=== PATIENT | male | born 1970 | race Caucasian/White ===

== ENCOUNTER 2020-02-12 10:57 | Inpatient (IN) ==
[2020-02-12] MEDS ORDERED: BISACODYL 5 MG TABLET PO PRN (12:55)
[2020-02-12] MEDS ORDERED: MAGNESIUM SULF RIDER 2 GM in PREMIX 1 EACH IV PRN (12:55)
[2020-02-12] MEDS ORDERED: LACTULOSE 20 GM/30 ML UDCUP PO PRN (12:55)
[2020-02-12] MEDS ORDERED: hydrALAZINE 20 MG/1 ML VIAL IV PRN (12:55)
[2020-02-12] MEDS ORDERED: diphenhydrAMINE CAP 25 MG CAPSULE PO PRN (12:55)
[2020-02-12] MEDS ORDERED: MAGNESIUM SULF RIDER 4 GM in PREMIX 1 EACH IV PRN (12:55)
[2020-02-12] MEDS ORDERED: ZALEPLON 5 MG CAPSULE PO PRN (12:55)
[2020-02-12] MEDS ORDERED: SIMETHICONE CHEW 125 MG TABLET PO PRN (12:55)
[2020-02-12] MEDS ORDERED: NICOTINE 21 MG/24 HR PATCH TRANSDERM PRN (12:55)
[2020-02-12] MEDS ORDERED: CALCIUM CARBONATE CHEW 500 MG TABLET PO PRN (12:55)
[2020-02-12] MEDS ORDERED: ONDANSETRON 4 MG/2 ML VIAL IV PRN (12:55)
[2020-02-12] MEDS ORDERED: ALUMINUM/MAGNES/SIMETH MAX STR 30 ML UDCUP PO PRN (12:55)
[2020-02-12] MEDS ORDERED: guaiFENesin/DM ER 600-30 MG TABLET PO PRN (12:55)
[2020-02-12] MEDS ORDERED: NITROGLYCERIN SL 0.4 MG TABLET SL PRN (13:00)
[2020-02-12] MEDS ORDERED: DEXTROSE 10% 250 ML BAG IV PRN (14:19)
[2020-02-12] MEDS ORDERED: GLUCAGON 1 MG VIAL IM PRN ×2 (14:19→17:48)
[2020-02-12] MEDS ORDERED: ENOXAPARIN 40 MG/0.4 ML SYRINGE SUBCUT SCH (14:30)
[2020-02-12] MEDS ORDERED: LIDOCAINE DRIP 2,000 MG/250 ML PREMIX IV SCH (14:30)
[2020-02-12] MEDS ORDERED: FUROSEMIDE 40 MG/4 ML VIAL IV ONE (17:45)
[2020-02-12] MEDS ORDERED: ALPRAZolam 0.5 MG TABLET PO PRN (17:46)
[2020-02-12] MEDS ORDERED: DEXTROSE 50% 25 GM/50 ML VIAL IV PRN (17:48)
[2020-02-12 18:06] LABS: Basophils # 0.1 10*3/uL (0.0-0.2); Basophils % 0.5 % (0.0-0.8); Eosinophils % 0.1 % (0.00-10.9); Hematocrit 41.6 VOL% (35.7-47.0); Hemoglobin 13.3 GM/DL (12.0-16.0); Immature Granulocytes % 0.4 %; Immature Granulocytes Absolute 0.05 #; Lymphocytes # 1.5 10*3/uL (1.4-4.0); Lymphocytes % 12.4 % (21.3-54.2); Mean Platelet Volume 10.8 FL (9.6-12.0); Monocytes % 10.5 % (1.7-12.7); Neutrophils % 76.1 % (38.7-73.9); Platelet Count 211 T/CUMM (130-400); Red Blood Count 4.38 MC/CUMM (3.8-5.5); Red Cell Distribution Width 13.7 % (9.3-17.3); White Blood Count 12.4 T/CUMM (4-12)
[2020-02-12 18:18] LABS: Albumin 3.4 G/DL (3.4-5.0); Bilirubin,Total 0.6 MG/DL (0.2-1.0); Calcium 8.5 MG/DL (8.5-10.1); Osmolality,Calculated 278.2 MOS/KG (273-304); Total Protein 7.6 G/DL (6.4-8.3)
[2020-02-12 18:34] LABS: Apearance,Urine CLEAR (Clear); Bacteria,Urine Occasional /HPF (Few); Bilirubin,Urine Negative (Negative); Blood, Urine Negative (Negative); Glucose,Urine (UA) Negative (Negative); Hyaline Casts,Urine 3 /LPF (0-3); Ketones,Urine Negative (Negative); Mucus,Urine Occasional /LPF (Occasional); Nitrite,Urine Negative (Negative); Protein,Urine Negative; RBC,Urine 2 /HPF (0-4); Squamous Epithelial Cell,Urine Occasional /HPF (0-10); Urine Color Yellow (Yellow); Urine Urobilinogen < 2.0 EU/DL (0.2-1.0); WBC,Urine 1 /HPF (0-6)
[2020-02-12] MEDS ORDERED: tiZANidine 4 MG TABLET PO PRN (21:32)
[2020-02-12] MEDS: AMIODARONE INJ 450 MG in DEXTROSE 5% 241 ML IV SCH (22:00)
[2020-02-12 22:05] LABS: Barbiturates Screen,Urine Negative (Negative); Benzodiazepines Screen,Urine Negative (Negative); Cannabinoid Screen,Urine Negative (Negative); Opiate Screen,Urine Positive (Negative); Phencyclidine Screen,Urine Negative (Negative)
[2020-02-12] MEDS: INSULIN REGULAR 100 UNIT/ML SUBCUT SCH (22:31)
[2020-02-12] MEDS: ASCORBIC ACID 500 MG TABLET PO SCH (22:32)
[2020-02-12] MEDS: ENOXAPARIN 150 MG/ML SYRINGE SUBCUT SCH (22:32)
[2020-02-12] MEDS: MORPHINE ER 15 MG TABLET PO SCH (22:34)
[2020-02-12] MEDS: traMADol 50 MG TABLET PO SCH (22:34)
[2020-02-12] MEDS: SACUBITRIL/VALSARTAN 49-51 MG TABLET PO SCH (22:34)
[2020-02-12] MEDS: SIMVASTATIN 10 MG TABLET PO SCH (22:35)
[2020-02-13 03:30] LABS: Basophils # 0.1 10*3/uL (0.0-0.2); Basophils % 0.5 % (0.0-0.8); Eosinophils % 0.1 % (0.00-10.9); Hemoglobin 13.5 GM/DL (14.0-18.0); Immature Granulocytes % 0.3 %; Immature Granulocytes Absolute 0.04 #; Lymphocytes # 1.8 10*3/uL (1.4-4.0); Lymphocytes % 15.1 % (21.2-54.2); Mean Corpuscular HGB Conc 32.1 GM/DL (32-36); Mean Corpuscular Volume 96.1 FL (87-102); Mean Platelet Volume 10.6 FL (9.6-12.0); Monocytes % 10.4 % (1.7-12.7); Neutrophils % 73.6 % (38.7-73.9); Platelet Count 184 T/CUMM (130-400); Red Blood Count 4.37 MC/CUMM (3.8-5.5); Red Cell Distribution Width 13.7 % (9.3-17.3); White Blood Count 12.2 T/CUMM (4-12)
[2020-02-13 04:04] LABS: Bilirubin,Total 0.5 MG/DL (0.2-1.0); Calcium 8.1 MG/DL (8.5-10.1); Osmolality,Calculated 277.2 MOS/KG (273-304); Risk Ratio 4.49; Thyroid Stimulating Hormone 1.99 uIU/ml (0.358-3.74); Total Protein 7.7 G/DL (6.4-8.3); VLDL CHOLESTEROL 21.2 MG/DL
[2020-02-13] MEDS: ENOXAPARIN 150 MG/ML SYRINGE SUBCUT SCH ×2 (06:11→21:30)
[2020-02-13] MEDS: traMADol 50 MG TABLET PO SCH ×3 (06:11→23:21)
[2020-02-13] MEDS: AMIODARONE INJ 450 MG in DEXTROSE 5% 241 ML IV SCH ×3 (06:11→19:10)
[2020-02-13] MEDS ORDERED: MAGNESIUM OXIDE 400 MG TABLET PO SCH (09:00)
[2020-02-13] MEDS ORDERED: PANTOPRAZOLE 40 MG TABLET PO SCH (09:00)
[2020-02-13] MEDS: LEVOTHYROXINE 150 MCG TABLET PO SCH (10:00)
[2020-02-13] MEDS: ASPIRIN EC 81 MG TABLET PO SCH (10:00)
[2020-02-13] MEDS: SACUBITRIL/VALSARTAN 49-51 MG TABLET PO SCH ×2 (10:00→21:30)
[2020-02-13] MEDS: ISOSORBIDE MONONITRATE 30 MG TABLET PO SCH (10:00)
[2020-02-13] MEDS: DIGOXIN 0.25 MG TABLET PO SCH (10:00)
[2020-02-13] MEDS: DOCUSATE SODIUM 100 MG CAPSULE PO SCH (10:00)
[2020-02-13] MEDS: carvediloL 25 MG TABLET PO SCH ×2 (10:00→21:30)
[2020-02-13] MEDS: hydrALAZINE 10 MG TABLET PO SCH ×3 (10:00→23:20)
[2020-02-13] MEDS: MAGNESIUM OXIDE 400 MG TABLET PO SCH ×2 (10:00→21:30)
[2020-02-13] MEDS: PARoxetine 20 MG TABLET PO SCH (10:00)
[2020-02-13] MEDS: ASCORBIC ACID 500 MG TABLET PO SCH ×2 (10:00→21:30)
[2020-02-13] MEDS: MORPHINE ER 15 MG TABLET PO SCH ×2 (10:00→23:21)
[2020-02-13] MEDS: MORPHINE 4 MG/1 ML VIAL IV PRN ×2 (10:25→10:26)
[2020-02-13] MEDS ORDERED: MAGNESIUM SULF RIDER 2 GM in PREMIX 1 EACH IV ONE (10:35)
[2020-02-13] MEDS: VANCOMYCIN INJ 2,000 MG in SODIUM CHLORIDE 0.9% 500 ML IV SCH (11:00)
[2020-02-13] MEDS: LIDOCAINE DRIP 2,000 MG/250 ML PREMIX IV SCH ×2 (11:15→19:40)
[2020-02-13] MEDS ORDERED: METOPROLOL TARTRATE 5 MG/5 ML VIAL IV ONE ×2 (11:28→11:30)
[2020-02-13] MEDS ORDERED: AMIODARONE 150 MG/3 ML VIAL ONE (11:28)
[2020-02-13] MEDS ORDERED: AMIODARONE INJ 150 MG in DEXTROSE 5% 100 ML IV ONE (11:30)
[2020-02-13] MEDS ORDERED: DIAZEPAM 5 MG TABLET PO ONE (11:53)
[2020-02-13] MEDS ORDERED: diphenhydrAMINE CAP 25 MG CAPSULE PO ONE (11:53)
[2020-02-13] MEDS ORDERED: LIDOCAINE 1% 20 ML VIAL ONE (11:59)
[2020-02-13] MEDS ORDERED: HEPARIN/NACL 0.9% 2 UNITS/ML 1,500 ML IV ONE (11:59)
[2020-02-13] MEDS: POTASSIUM CHLORIDE RIDER 10 MEQ in PREMIX 1 EACH IV SCH ×4 (12:00→15:00)
[2020-02-13] MEDS: SODIUM CHLORIDE 0.9% 1,000 ML IV SCH ×2 (12:00→20:00)
[2020-02-13] MEDS: cefTRIAXone 1,000 MG in SYRINGE 1 EACH IV SCH (12:00)
[2020-02-13] MEDS ORDERED: SUCCINYLCHOLINE 200 MG/10 ML VIAL ONE (13:02)
[2020-02-13] MEDS ORDERED: MIDAZOLAM 2 MG/2 ML VIAL ONE (13:02)
[2020-02-13] MEDS ORDERED: ETOMIDATE 20 MG/10 ML VIAL IV ONE (13:05)
[2020-02-13 16:55] LABS: ABG Base Excess -2.1 MMOL/L (-2.5-2.5); ABG HCO3 22.7 MMOL/L (20-26); ABG Oxygen Saturation 98.2 % (95-100); ABG PCO2 41.7 MM HG (35-48); ABG PH 7.356 (7.35-7.45); ABG TCO2 20.5 MMOL/L (23-27); Allen Test Positive; Pt O2 Delivery Device Ventilator
[2020-02-13] MEDS: FUROSEMIDE 40 MG/4 ML VIAL IV SCH ×2 (21:23)
[2020-02-13] MEDS: MEXILETINE 150 MG CAPSULE PO SCH ×2 (21:28→23:21)
[2020-02-13] MEDS: INSULIN REGULAR 100 UNIT/ML SUBCUT SCH ×3 (21:28→23:22)
[2020-02-13] MEDS: SIMVASTATIN 10 MG TABLET PO SCH (21:30)
[2020-02-14] MEDS: AMIODARONE INJ 450 MG in DEXTROSE 5% 241 ML IV SCH ×3 (03:54→20:28)
[2020-02-14] MEDS: LIDOCAINE DRIP 2,000 MG/250 ML PREMIX IV SCH ×2 (04:00→15:18)
[2020-02-14 05:58] LABS: Basophils % 0.4 % (0.0-0.8); Eosinophils # 0.1 10*3/uL (0.0-0.87); Eosinophils % 0.9 % (0.00-10.9); Hematocrit 35.6 VOL% (42.0-52.0); Hemoglobin 12.1 GM/DL (14.0-18.0); Immature Granulocytes % 0.4 %; Immature Granulocytes Absolute 0.04 #; Lymphocytes # 1.8 10*3/uL (1.4-4.0); Lymphocytes % 16.8 % (21.2-54.2); Mean Corpuscular Volume 95.4 FL (87-102); Mean Platelet Volume 11.5 FL (9.6-12.0); Monocytes % 14.7 % (1.7-12.7); Neutrophils % 66.8 % (38.7-73.9); Platelet Count 173 T/CUMM (130-400); Red Blood Count 3.73 MC/CUMM (3.8-5.5); Red Cell Distribution Width 14.1 % (9.3-17.3); White Blood Count 10.8 T/CUMM (4-12)
[2020-02-14] MEDS: ENOXAPARIN 150 MG/ML SYRINGE SUBCUT SCH ×2 (06:13→17:17)
[2020-02-14] MEDS: traMADol 50 MG TABLET PO SCH (06:14)
[2020-02-14] MEDS: MEXILETINE 150 MG CAPSULE PO SCH (06:14)
[2020-02-14] MEDS: INSULIN REGULAR 100 UNIT/ML SUBCUT SCH ×3 (06:47→17:58)
[2020-02-14] MEDS: LEVOTHYROXINE 150 MCG TABLET PO SCH (06:47)
[2020-02-14 07:25] LABS: Calcium 6.5 MG/DL (8.5-10.1); Osmolality,Calculated 267.1 MOS/KG (273-304)
[2020-02-14 08:05] LABS: ABG Base Excess -3.6 MMOL/L (-2.5-2.5); ABG HCO3 21.1 MMOL/L (20-26); ABG Oxygen Saturation 96.4 % (95-100); ABG PCO2 37.1 MM HG (35-48); ABG PH 7.373 (7.35-7.45); ABG PO2 86.9 MM HG (80-95); ABG TCO2 22.3 MMOL/L (23-27)
[2020-02-14] MEDS: PARoxetine 20 MG TABLET PO SCH (11:00)
[2020-02-14] MEDS: FUROSEMIDE 40 MG/4 ML VIAL IV SCH ×2 (11:00→16:40)
[2020-02-14] MEDS: VANCOMYCIN INJ 2,000 MG in SODIUM CHLORIDE 0.9% 500 ML IV SCH (11:00)
[2020-02-14] MEDS: ASPIRIN EC 81 MG TABLET PO SCH (11:00)
[2020-02-14] MEDS: ASCORBIC ACID 500 MG TABLET PO SCH ×2 (11:00→21:30)
[2020-02-14] MEDS: MAGNESIUM OXIDE 400 MG TABLET PO SCH ×2 (11:00→21:30)
[2020-02-14] MEDS: cefTRIAXone 1,000 MG in SYRINGE 1 EACH IV SCH (11:00)
[2020-02-14] MEDS: PANTOPRAZOLE 40 MG VIAL IV SCH (11:00)
[2020-02-14] MEDS: carvediloL 25 MG TABLET PO SCH ×2 (11:00→16:40)
[2020-02-14] MEDS: DIGOXIN 0.25 MG TABLET PO SCH (11:00)
[2020-02-14] MEDS: SACUBITRIL/VALSARTAN 49-51 MG TABLET PO SCH ×2 (11:00→21:30)
[2020-02-14] MEDS: DOCUSATE SODIUM 100 MG CAPSULE PO SCH (15:15)
[2020-02-14] MEDS: ISOSORBIDE MONONITRATE 30 MG TABLET PO SCH (15:21)
[2020-02-14] MEDS: SIMVASTATIN 10 MG TABLET PO SCH (21:30)
[2020-02-14] MEDS: ISOSORBIDE DINITRATE 10 MG TABLET PO SCH (21:30)
[2020-02-15] MEDS: INSULIN REGULAR 100 UNIT/ML SUBCUT SCH ×4 (01:39→17:54)
[2020-02-15] MEDS: AMIODARONE INJ 450 MG in DEXTROSE 5% 241 ML IV SCH ×3 (03:14→18:30)
[2020-02-15 04:39] LABS: Basophils % 0.4 % (0.0-0.8); Eosinophils # 0.2 10*3/uL (0.0-0.87); Eosinophils % 2.2 % (0.00-10.9); Hematocrit 39.5 VOL% (42.0-52.0); Hemoglobin 12.4 GM/DL (14.0-18.0); Immature Granulocytes % 0.4 %; Immature Granulocytes Absolute 0.04 #; Lymphocytes # 2.1 10*3/uL (1.4-4.0); Lymphocytes % 20.8 % (21.2-54.2); Mean Corpuscular HGB Conc 31.4 GM/DL (32-36); Mean Corpuscular Volume 96.3 FL (87-102); Mean Platelet Volume 11.1 FL (9.6-12.0); Monocytes % 11.1 % (1.7-12.7); Neutrophils % 65.1 % (38.7-73.9); Platelet Count 206 T/CUMM (130-400)
[2020-02-15 04:48] LABS: Calcium 8.3 MG/DL (8.5-10.1); Osmolality,Calculated 288.5 MOS/KG (273-304)
[2020-02-15] MEDS: ENOXAPARIN 150 MG/ML SYRINGE SUBCUT SCH ×2 (06:19→17:57)
[2020-02-15 08:07] LABS: ABG HCO3 23.4 MMOL/L (20-26); ABG Oxygen Saturation 97.8 % (95-100); ABG PCO2 41.9 MM HG (35-48); ABG PH 7.364 (7.35-7.45); ABG PO2 107.6 MM HG (80-95); ABG TCO2 24.6 MMOL/L (23-27)
[2020-02-15] MEDS: DIGOXIN 0.25 MG TABLET PO SCH (08:18)
[2020-02-15] MEDS: ISOSORBIDE DINITRATE 10 MG TABLET PO SCH ×2 (08:21→20:33)
[2020-02-15] MEDS: PARoxetine 20 MG TABLET PO SCH (08:22)
[2020-02-15] MEDS: ASPIRIN EC 81 MG TABLET PO SCH (08:25)
[2020-02-15] MEDS: FUROSEMIDE 40 MG/4 ML VIAL IV SCH ×2 (08:26→15:59)
[2020-02-15] MEDS: PANTOPRAZOLE 40 MG VIAL IV SCH (08:27)
[2020-02-15] MEDS: MAGNESIUM OXIDE 400 MG TABLET PO SCH ×2 (08:27→20:33)
[2020-02-15] MEDS: SACUBITRIL/VALSARTAN 49-51 MG TABLET PO SCH ×2 (08:27→20:33)
[2020-02-15] MEDS: carvediloL 25 MG TABLET PO SCH ×2 (08:27→17:58)
[2020-02-15] MEDS: DOCUSATE SODIUM 100 MG CAPSULE PO SCH (08:27)
[2020-02-15] MEDS: ASCORBIC ACID 500 MG TABLET PO SCH ×2 (08:27→20:33)
[2020-02-15] MEDS: POTASSIUM CHLORIDE 20 MEQ TABLET PO PRN ×2 (08:30→20:33)
[2020-02-15] MEDS: LEVOTHYROXINE 150 MCG TABLET PO SCH (08:54)
[2020-02-15] MEDS: cefTRIAXone 1,000 MG in SYRINGE 1 EACH IV SCH (09:55)
[2020-02-15] MEDS: VANCOMYCIN INJ 2,000 MG in SODIUM CHLORIDE 0.9% 500 ML IV SCH (11:01)
[2020-02-15] MEDS: LIDOCAINE DRIP 2,000 MG/250 ML PREMIX IV SCH (11:48)
[2020-02-15] MEDS: SIMVASTATIN 10 MG TABLET PO SCH (20:33)
[2020-02-15] MEDS: ACETAMINOPHEN 325 MG TABLET PO PRN (20:34)
[2020-02-16] MEDS: INSULIN REGULAR 100 UNIT/ML SUBCUT SCH ×4 (00:46→17:51)
[2020-02-16] MEDS: MORPHINE 4 MG/1 ML VIAL IV PRN ×2 (03:40→09:12)
[2020-02-16 03:49] LABS: Calcium 8.7 MG/DL (8.5-10.1); Osmolality,Calculated 289.8 MOS/KG (273-304)
[2020-02-16 03:58] LABS: Basophils # 0.1 10*3/uL (0.0-0.2); Basophils % 0.4 % (0.0-0.8); Eosinophils # 0.1 10*3/uL (0.0-0.87); Eosinophils % 0.7 % (0.00-10.9); Hematocrit 39.9 VOL% (42.0-52.0); Hemoglobin 12.8 GM/DL (14.0-18.0); Immature Granulocytes % 0.5 %; Immature Granulocytes Absolute 0.09 #; Lymphocytes # 2.2 10*3/uL (1.4-4.0); Lymphocytes % 12.8 % (21.2-54.2); Mean Corpuscular HGB Conc 32.1 GM/DL (32-36); Mean Corpuscular Volume 95.5 FL (87-102); Mean Platelet Volume 11.1 FL (9.6-12.0); Neutrophils % 76.6 % (38.7-73.9); Platelet Count 244 T/CUMM (130-400); Red Blood Count 4.18 MC/CUMM (3.8-5.5); Red Cell Distribution Width 13.8 % (9.3-17.3); White Blood Count 17.4 T/CUMM (4-12)
[2020-02-16] MEDS: AMIODARONE INJ 450 MG in DEXTROSE 5% 241 ML IV SCH ×2 (04:20→17:28)
[2020-02-16] MEDS: POTASSIUM CHLORIDE 20 MEQ TABLET PO PRN ×2 (05:17→05:55)
[2020-02-16 05:26] LABS: ABG Base Excess -0.8 MMOL/L (-2.5-2.5); ABG HCO3 23.7 MMOL/L (20-26); ABG Oxygen Saturation 97.4 % (95-100); ABG PCO2 41.6 MM HG (35-48); ABG PH 7.376 (7.35-7.45); ABG PO2 95.5 MM HG (80-95); ABG TCO2 21.3 MMOL/L (23-27); Allen Test Positive; Pt O2 Delivery Device Ventilator
[2020-02-16] MEDS: ENOXAPARIN 150 MG/ML SYRINGE SUBCUT SCH ×2 (07:35→18:03)
[2020-02-16] MEDS: ASCORBIC ACID 500 MG TABLET PO SCH ×2 (08:12→21:28)
[2020-02-16] MEDS: ISOSORBIDE DINITRATE 10 MG TABLET PO SCH ×2 (08:12→21:28)
[2020-02-16] MEDS: ASPIRIN EC 81 MG TABLET PO SCH (08:12)
[2020-02-16] MEDS: DIGOXIN 0.25 MG TABLET PO SCH (08:13)
[2020-02-16] MEDS: SACUBITRIL/VALSARTAN 49-51 MG TABLET PO SCH (08:13)
[2020-02-16] MEDS: carvediloL 25 MG TABLET PO SCH ×2 (08:13→17:27)
[2020-02-16] MEDS: PANTOPRAZOLE 40 MG VIAL IV SCH (08:13)
[2020-02-16] MEDS: MAGNESIUM OXIDE 400 MG TABLET PO SCH ×2 (08:13→21:28)
[2020-02-16] MEDS: PARoxetine 20 MG TABLET PO SCH (08:13)
[2020-02-16] MEDS: FUROSEMIDE 40 MG/4 ML VIAL IV SCH ×2 (08:13→16:28)
[2020-02-16] MEDS: LEVOTHYROXINE 150 MCG TABLET PO SCH (08:14)
[2020-02-16] MEDS: DOCUSATE SODIUM 100 MG CAPSULE PO SCH (08:14)
[2020-02-16] MEDS: ACETAMINOPHEN 325 MG TABLET PO PRN (10:00)
[2020-02-16] MEDS: cefTRIAXone 1,000 MG in SYRINGE 1 EACH IV SCH (10:15)
[2020-02-16] MEDS: LIDOCAINE DRIP 2,000 MG/250 ML PREMIX IV SCH (11:41)
[2020-02-16] MEDS: VANCOMYCIN INJ 2,000 MG in SODIUM CHLORIDE 0.9% 500 ML IV SCH ×2 (11:41→23:23)
[2020-02-16] MEDS: fentaNYL INJ 1,250 MCG in SODIUM CHLORIDE 0.9% 225 ML IV PRN (11:43)
[2020-02-16] MEDS: SIMVASTATIN 10 MG TABLET PO SCH (21:28)
[2020-02-17] MEDS: fentaNYL INJ 1,250 MCG in SODIUM CHLORIDE 0.9% 225 ML IV PRN (02:20)
[2020-02-17 04:37] LABS: ABG Base Excess -2.8 MMOL/L (-2.5-2.5); ABG HCO3 23.3 MMOL/L (20-26); ABG Oxygen Saturation 95.8 % (95-100); ABG PCO2 45.4 MM HG (35-48); ABG PH 7.328 (7.35-7.45); ABG PO2 86.8 MM HG (80-95); ABG TCO2 24.7 MMOL/L (23-27); Allen Test Positive; Pt O2 Delivery Device Ventilator
[2020-02-17 05:06] LABS: Basophils # 0.1 10*3/uL (0.0-0.2); Basophils % 0.4 % (0.0-0.8); Eosinophils # 0.5 10*3/uL (0.0-0.87); Eosinophils % 3.3 % (0.00-10.9); Hematocrit 38.7 VOL% (42.0-52.0); Hemoglobin 12.2 GM/DL (14.0-18.0); Immature Granulocytes % 0.4 %; Immature Granulocytes Absolute 0.06 #; Lymphocytes # 2.6 10*3/uL (1.4-4.0); Lymphocytes % 18.3 % (21.2-54.2); Mean Corpuscular HGB Conc 31.5 GM/DL (32-36); Mean Corpuscular Volume 95.8 FL (87-102); Mean Platelet Volume 11.2 FL (9.6-12.0); Monocytes % 9.9 % (1.7-12.7); Neutrophils % 67.7 % (38.7-73.9); Platelet Count 232 T/CUMM (130-400); Red Blood Count 4.04 MC/CUMM (3.8-5.5); Red Cell Distribution Width 14.2 % (9.3-17.3)
[2020-02-17 05:11] LABS: Calcium 8.7 MG/DL (8.5-10.1); Osmolality,Calculated 295.8 MOS/KG (273-304)
[2020-02-17 05:20] LABS: Risk Ratio 6.77; VLDL CHOLESTEROL 45.2 MG/DL
[2020-02-17] MEDS: ENOXAPARIN 150 MG/ML SYRINGE SUBCUT SCH (06:49)
[2020-02-17] MEDS: INSULIN REGULAR 100 UNIT/ML SUBCUT SCH ×4 (07:03→19:00)
[2020-02-17] MEDS ORDERED: HEPARIN/NACL 0.9% 2 UNITS/ML 500 ML IV ONE ×3 (08:07→08:36)
[2020-02-17] MEDS ORDERED: HEPARIN/NACL 0.9% 2 UNITS/ML 1,000 ML IV ONE (08:18)
[2020-02-17] MEDS ORDERED: LIDOCAINE 1% 20 ML VIAL ONE (08:34)
[2020-02-17] MEDS ORDERED: HEPARIN 5,000 UNIT/1 ML VIAL ONE ×6 (09:57→12:32)
[2020-02-17 12:26] LABS: ABG Base Excess -5.9 MMOL/L (-2.5-2.5); ABG HCO3 18.5 MMOL/L (20-26); ABG Oxygen Saturation 98.6 % (95-100); ABG PCO2 33.1 MM HG (35-48); ABG PH 7.366 (7.35-7.45); ABG PO2 152.3 MM HG (80-95); ABG TCO2 19.6 MMOL/L (23-27); Glucose Heart Surgery 107 MG/DL (74-106); Hemoglobin Heart Surgery 11.8 G/DL (14.0-18.0); Potassium Heart/CVR 3.9 MMOL/L (3.5-5.1)
[2020-02-17] MEDS ORDERED: PHENYLEPHRINE DRIP 20 MG/250 ML PREMIX IV ONE (12:45)
[2020-02-17] MEDS ORDERED: ROCURONIUM 100 MG/10 ML VIAL IV ONE (12:46)
[2020-02-17] MEDS ORDERED: MIDAZOLAM 2 MG/2 ML VIAL ONE (12:46)
[2020-02-17] MEDS ORDERED: HEPARIN 10,000 UNIT/10 ML VIAL ONE (12:46)
[2020-02-17] MEDS ORDERED: SODIUM CHLORIDE 0.9% 1,000 ML IV ONE (12:46)
[2020-02-17] MEDS ORDERED: VECURONIUM 10 MG VIAL IV ONE (13:49)
[2020-02-17] MEDS ORDERED: SEVOFLURANE 1 UNIT/15 MINUTE INH ONE (13:49)
[2020-02-17] MEDS ORDERED: PROTAMINE SULFATE 50 MG/5 ML VIAL IV ONE (13:49)
[2020-02-17] MEDS: carvediloL 25 MG TABLET PO SCH ×2 (15:30→20:10)
[2020-02-17] MEDS: LEVOTHYROXINE 150 MCG TABLET PO SCH (15:30)
[2020-02-17] MEDS: DOCUSATE SODIUM 100 MG CAPSULE PO SCH (15:30)
[2020-02-17] MEDS: ASPIRIN EC 81 MG TABLET PO SCH (15:30)
[2020-02-17] MEDS: ISOSORBIDE DINITRATE 10 MG TABLET PO SCH ×2 (15:31→22:16)
[2020-02-17] MEDS: PANTOPRAZOLE 40 MG VIAL IV SCH (15:31)
[2020-02-17] MEDS: ASCORBIC ACID 500 MG TABLET PO SCH ×2 (15:31→22:16)
[2020-02-17] MEDS: PARoxetine 20 MG TABLET PO SCH (15:31)
[2020-02-17] MEDS: MAGNESIUM OXIDE 400 MG TABLET PO SCH ×2 (15:31→22:16)
[2020-02-17] MEDS ORDERED: PHENYLEPHRINE DRIP 40 MG/250 ML PREMIX IV ONE (17:03)
[2020-02-17] MEDS: PHENYLEPHRINE DRIP 40 MG/250 ML PREMIX IV PRN ×4 (17:15→23:16)
[2020-02-17 17:55] LABS: ABG Base Excess -13.8 MMOL/L (-2.5-2.5); ABG HCO3 13.8 MMOL/L (20-26); ABG Oxygen Saturation 87.1 % (95-100); ABG PO2 87.9 MM HG (80-95); ABG TCO2 29.7 MMOL/L (23-27)
[2020-02-17 18:05] LABS: ABG PH 6.831 (7.35-7.45)
[2020-02-17 18:58] LABS: ABG Base Excess -9.5 MMOL/L (-2.5-2.5); ABG HCO3 16.9 MMOL/L (20-26); ABG Oxygen Saturation 97.5 % (95-100); ABG TCO2 21.7 MMOL/L (23-27); Glucose Heart Surgery 236 MG/DL (74-106); Hematocrit Heart Surgery 40.1 PERCENT (42-52)
[2020-02-17 19:04] LABS: ABG PCO2 79.4 MM HG (35-48); ABG PH 7.075 (7.35-7.45); Potassium Heart/CVR 6.5 MMOL/L (3.5-5.1)
[2020-02-17] MEDS ORDERED: SODIUM POLYSTYRENE SULFATE 15 GM/60 ML BOTTLE PO STA (19:20)
[2020-02-17] MEDS: cefTRIAXone 1,000 MG in SYRINGE 1 EACH IV SCH (20:00)
[2020-02-17] MEDS: LIDOCAINE DRIP 2,000 MG/250 ML PREMIX IV SCH (20:09)
[2020-02-17] MEDS: SIMVASTATIN 10 MG TABLET PO SCH (22:16)
[2020-02-18] MEDS: PHENYLEPHRINE DRIP 40 MG/250 ML PREMIX IV PRN ×2 (01:41→05:15)
[2020-02-18] MEDS: INSULIN REGULAR 100 UNIT/ML SUBCUT SCH ×4 (02:17→18:07)
[2020-02-18] MEDS: fentaNYL INJ 1,250 MCG in SODIUM CHLORIDE 0.9% 225 ML IV PRN ×2 (02:56→20:30)
[2020-02-18] MEDS: ENOXAPARIN 150 MG/ML SYRINGE SUBCUT SCH ×2 (02:57→06:43)
[2020-02-18 03:53] LABS: ABG Base Excess -7.4 MMOL/L (-2.5-2.5); ABG HCO3 18.6 MMOL/L (20-26); ABG Oxygen Saturation 99.5 % (95-100); ABG PCO2 39.2 MM HG (35-48); ABG PH 7.293 (7.35-7.45); ABG PO2 384.1 MM HG (80-95); ABG TCO2 19.8 MMOL/L (23-27)
[2020-02-18 04:05] LABS: Basophils % 0.2 % (0.0-0.8); Hematocrit 39.6 VOL% (42.0-52.0); Hemoglobin 11.9 GM/DL (14.0-18.0); Immature Granulocytes % 1.2 %; Lymphocytes # 1.9 10*3/uL (1.4-4.0); Lymphocytes % 10.9 % (21.2-54.2); Mean Corpuscular HGB Conc 30.1 GM/DL (32-36); Mean Corpuscular Volume 100.3 FL (87-102); Mean Platelet Volume 10.8 FL (9.6-12.0); Monocytes % 9.2 % (1.7-12.7); Neutrophils % 78.5 % (38.7-73.9); Platelet Count 283 T/CUMM (130-400); Red Blood Count 3.95 MC/CUMM (3.8-5.5); Red Cell Distribution Width 14.5 % (9.3-17.3); White Blood Count 16.9 T/CUMM (4-12)
[2020-02-18 04:25] LABS: Calcium 7.5 MG/DL (8.5-10.1); Osmolality,Calculated 316.7 MOS/KG (273-304)
[2020-02-18] MEDS: DOCUSATE SODIUM 100 MG CAPSULE PO SCH (08:18)
[2020-02-18] MEDS: LEVOTHYROXINE 150 MCG TABLET PO SCH (08:37)
[2020-02-18] MEDS: ASPIRIN EC 81 MG TABLET PO SCH (08:38)
[2020-02-18] MEDS: ASCORBIC ACID 500 MG TABLET PO SCH ×2 (08:38→22:00)
[2020-02-18] MEDS: carvediloL 25 MG TABLET PO SCH ×2 (08:38→17:23)
[2020-02-18] MEDS: PANTOPRAZOLE 40 MG VIAL IV SCH (08:38)
[2020-02-18] MEDS: ISOSORBIDE DINITRATE 10 MG TABLET PO SCH ×2 (08:38→22:00)
[2020-02-18] MEDS: cefTRIAXone 1,000 MG in SYRINGE 1 EACH IV SCH (10:15)
[2020-02-18] MEDS: LIDOCAINE DRIP 2,000 MG/250 ML PREMIX IV SCH (10:24)
[2020-02-18] MEDS: VANCOMYCIN INJ 2,000 MG in SODIUM CHLORIDE 0.9% 500 ML IV SCH (16:47)
[2020-02-18] MEDS: ACETAMINOPHEN 325 MG TABLET PO PRN ×2 (17:24→22:13)
[2020-02-18] MEDS: SIMVASTATIN 10 MG TABLET PO SCH (22:00)
[2020-02-19] MEDS: INSULIN REGULAR 100 UNIT/ML SUBCUT SCH ×4 (00:22→17:05)
[2020-02-19] MEDS: ACETAMINOPHEN 325 MG TABLET PO PRN ×2 (01:47→20:24)
[2020-02-19 03:52] LABS: ABG Base Excess -4.5 MMOL/L (-2.5-2.5); ABG HCO3 20.7 MMOL/L (20-26); ABG Oxygen Saturation 98.9 % (95-100); ABG PCO2 39.3 MM HG (35-48); ABG PH 7.336 (7.35-7.45)
[2020-02-19 03:56] LABS: Basophils % 0.4 % (0.0-0.8); Hematocrit 34.7 VOL% (42.0-52.0); Hemoglobin 10.6 GM/DL (14.0-18.0); Immature Granulocytes % 0.7 %; Immature Granulocytes Absolute 0.08 #; Lymphocytes # 1.8 10*3/uL (1.4-4.0); Lymphocytes % 15.6 % (21.2-54.2); Mean Corpuscular HGB Conc 30.5 GM/DL (32-36); Mean Corpuscular Volume 98.9 FL (87-102); Mean Platelet Volume 10.7 FL (9.6-12.0); Neutrophils % 68.3 % (38.7-73.9); Platelet Count 269 T/CUMM (130-400); Red Blood Count 3.51 MC/CUMM (3.8-5.5); Red Cell Distribution Width 14.6 % (9.3-17.3); White Blood Count 11.3 T/CUMM (4-12)
[2020-02-19] MEDS: VANCOMYCIN INJ 2,000 MG in SODIUM CHLORIDE 0.9% 500 ML IV SCH (06:50)
[2020-02-19] MEDS: ENOXAPARIN 150 MG/ML SYRINGE SUBCUT SCH (07:01)
[2020-02-19] MEDS: METOCLOPRAMIDE 10 MG/2 ML VIAL IV SCH ×3 (07:02→17:12)
[2020-02-19] MEDS: ISOSORBIDE DINITRATE 10 MG TABLET PO SCH ×2 (08:50→20:23)
[2020-02-19] MEDS: LEVOTHYROXINE 150 MCG TABLET PO SCH (08:53)
[2020-02-19] MEDS: carvediloL 25 MG TABLET PO SCH ×2 (08:53→17:12)
[2020-02-19] MEDS: DOCUSATE SODIUM 100 MG CAPSULE PO SCH (08:53)
[2020-02-19] MEDS: ASPIRIN CHEW 81 MG TABLET PO SCH (08:54)
[2020-02-19] MEDS: ASCORBIC ACID 500 MG TABLET PO SCH ×2 (08:54→20:23)
[2020-02-19] MEDS: hydrALAZINE 10 MG TABLET PO SCH (08:54)
[2020-02-19] MEDS: PANTOPRAZOLE 40 MG VIAL IV SCH (08:55)
[2020-02-19] MEDS: cefTRIAXone 1,000 MG in SYRINGE 1 EACH IV SCH (09:05)
[2020-02-19] MEDS: LIDOCAINE DRIP 2,000 MG/250 ML PREMIX IV SCH (11:31)
[2020-02-19] MEDS: hydrALAZINE 25 MG TABLET PO SCH ×2 (14:55→20:23)
[2020-02-19] MEDS ORDERED: METOCLOPRAMIDE 10 MG/2 ML VIAL IV SCH (20:00)
[2020-02-19] MEDS: SIMVASTATIN 10 MG TABLET PO SCH (20:23)
[2020-02-19 22:33] LABS: Albumin 2.5 G/DL (3.4-5.0); Bilirubin,Direct 0.48 MG/DL (0.0-0.20); Bilirubin,Indirect 0.4 MG/DL (0.0-1.0); Bilirubin,Total 0.9 MG/DL (0.2-1.0); Calcium 8.3 MG/DL (8.5-10.1); Osmolality,Calculated 343.7 MOS/KG (273-304); Total Protein 6.8 G/DL (6.4-8.3)
[2020-02-20] MEDS: INSULIN REGULAR 100 UNIT/ML SUBCUT SCH ×5 (00:18→22:36)
[2020-02-20] MEDS: METOCLOPRAMIDE 10 MG/2 ML VIAL IV SCH ×2 (00:19→06:15)
[2020-02-20 05:07] LABS: Basophils # 0.1 10*3/uL (0.0-0.2); Basophils % 0.4 % (0.0-0.8); Hematocrit 36.6 VOL% (42.0-52.0); Hemoglobin 11.2 GM/DL (14.0-18.0); Immature Granulocytes % 0.5 %; Immature Granulocytes Absolute 0.06 #; Lymphocytes # 2.3 10*3/uL (1.4-4.0); Lymphocytes % 19.9 % (21.2-54.2); Mean Corpuscular HGB Conc 30.6 GM/DL (32-36); Mean Corpuscular Volume 98.7 FL (87-102); Mean Platelet Volume 11.1 FL (9.6-12.0); Monocytes % 14.7 % (1.7-12.7); Neutrophils % 64.5 % (38.7-73.9); Platelet Count 291 T/CUMM (130-400); Red Blood Count 3.71 MC/CUMM (3.8-5.5); Red Cell Distribution Width 14.6 % (9.3-17.3); White Blood Count 11.4 T/CUMM (4-12)
[2020-02-20 05:31] LABS: Calcium 8.9 MG/DL (8.5-10.1); Osmolality,Calculated 342.7 MOS/KG (273-304)
[2020-02-20 05:34] LABS: Albumin 2.6 G/DL (3.4-5.0); Bilirubin,Direct 0.48 MG/DL (0.0-0.20); Bilirubin,Indirect 1.6 MG/DL (0.0-1.0); Bilirubin,Total 2.1 MG/DL (0.2-1.0)
[2020-02-20] MEDS: ENOXAPARIN 150 MG/ML SYRINGE SUBCUT SCH (06:14)
[2020-02-20] MEDS: ASCORBIC ACID 500 MG TABLET PO SCH ×2 (08:16→22:36)
[2020-02-20] MEDS: carvediloL 25 MG TABLET PO SCH ×2 (08:16→18:27)
[2020-02-20] MEDS: LEVOTHYROXINE 150 MCG TABLET PO SCH (08:16)
[2020-02-20] MEDS: ASPIRIN CHEW 81 MG TABLET PO SCH (08:16)
[2020-02-20] MEDS: ISOSORBIDE DINITRATE 10 MG TABLET PO SCH ×2 (08:16→22:36)
[2020-02-20] MEDS: DOCUSATE SODIUM 100 MG CAPSULE PO SCH (08:16)
[2020-02-20] MEDS: PANTOPRAZOLE 40 MG VIAL IV SCH (08:17)
[2020-02-20] MEDS: hydrALAZINE 25 MG TABLET PO SCH ×3 (08:25→22:36)
[2020-02-20] MEDS: SODIUM CHLORIDE 23.4% CONC INJ 38.5 MEQ in STERILE WATER INJ 1,000 ML IV SCH ×2 (09:36→20:01)
[2020-02-20] MEDS: cefTRIAXone 1,000 MG in SYRINGE 1 EACH IV SCH (09:40)
[2020-02-20] MEDS: SIMVASTATIN 10 MG TABLET PO SCH (22:36)
[2020-02-21] MEDS: VANCOMYCIN INJ 2,000 MG in SODIUM CHLORIDE 0.9% 500 ML IV SCH (06:30)
[2020-02-21] MEDS: ENOXAPARIN 150 MG/ML SYRINGE SUBCUT SCH (06:40)
[2020-02-21 06:54] LABS: Basophils % 0.3 % (0.0-0.8); Calcium 9.2 MG/DL (8.5-10.1); Eosinophils % 0.1 % (0.00-10.9); Hematocrit 40.3 VOL% (42.0-52.0); Immature Granulocytes % 0.3 %; Immature Granulocytes Absolute 0.04 #; Lymphocytes # 2.4 10*3/uL (1.4-4.0); Lymphocytes % 20.6 % (21.2-54.2); Mean Corpuscular HGB Conc 29.3 GM/DL (32-36); Mean Corpuscular Volume 103.1 FL (87-102); Mean Platelet Volume 11.2 FL (9.6-12.0); Monocytes % 10.3 % (1.7-12.7); NRBC # 0.03 10*3/uL; Neutrophils % 68.4 % (38.7-73.9); Osmolality,Calculated 347.3 MOS/KG (273-304); Platelet Count 313 T/CUMM (130-400); Red Blood Count 3.91 MC/CUMM (3.8-5.5); Red Cell Distribution Width 14.8 % (9.3-17.3); White Blood Count 11.6 T/CUMM (4-12)
[2020-02-21 06:55] LABS: Hemoglobin 11.8 GM/DL (14.0-18.0)
[2020-02-21] MEDS: LIDOCAINE DRIP 2,000 MG/250 ML PREMIX IV SCH (08:17)
[2020-02-21] MEDS: SODIUM CHLORIDE 23.4% CONC INJ 38.5 MEQ in STERILE WATER INJ 1,000 ML IV SCH (08:17)
[2020-02-21] MEDS: INSULIN REGULAR 100 UNIT/ML SUBCUT SCH ×4 (08:20→21:52)
[2020-02-21] MEDS: PANTOPRAZOLE 40 MG VIAL IV SCH (09:57)
[2020-02-21] MEDS: DEXTROSE 5% 1,000 ML IV SCH ×2 (10:00→18:51)
[2020-02-21] MEDS: LEVOTHYROXINE 150 MCG TABLET PO SCH (10:16)
[2020-02-21] MEDS: DOCUSATE SODIUM 100 MG CAPSULE PO SCH (10:16)
[2020-02-21] MEDS: hydrALAZINE 25 MG TABLET PO SCH ×3 (10:16→21:51)
[2020-02-21] MEDS: carvediloL 25 MG TABLET PO SCH ×2 (10:16→17:26)
[2020-02-21] MEDS: ISOSORBIDE DINITRATE 10 MG TABLET PO SCH ×2 (10:16→21:50)
[2020-02-21] MEDS: ASCORBIC ACID 500 MG TABLET PO SCH ×2 (10:16→21:50)
[2020-02-21] MEDS: ASPIRIN CHEW 81 MG TABLET PO SCH (10:17)
[2020-02-21 13:53] LABS: Calcium 8.6 MG/DL (8.5-10.1); Osmolality,Calculated 351.2 MOS/KG (273-304)
[2020-02-21] MEDS: SIMVASTATIN 10 MG TABLET PO SCH (21:51)
[2020-02-22] MEDS: DEXTROSE 5% 1,000 ML IV SCH ×4 (01:54→17:08)
[2020-02-22] MEDS: ENOXAPARIN 150 MG/ML SYRINGE SUBCUT SCH (05:39)
[2020-02-22 06:06] LABS: Basophils % 0.4 % (0.0-0.8); Eosinophils # 0.1 10*3/uL (0.0-0.87); Eosinophils % 1.2 % (0.00-10.9); Hematocrit 36.7 VOL% (42.0-52.0); Hemoglobin 10.9 GM/DL (14.0-18.0); Immature Granulocytes % 0.6 %; Immature Granulocytes Absolute 0.06 #; Lymphocytes # 2.2 10*3/uL (1.4-4.0); Lymphocytes % 20.6 % (21.2-54.2); Mean Corpuscular HGB Conc 29.7 GM/DL (32-36); Mean Corpuscular Volume 101.7 FL (87-102); Mean Platelet Volume 11.4 FL (9.6-12.0); Monocytes % 6.7 % (1.7-12.7); NRBC # 0.04 10*3/uL; Neutrophils % 70.5 % (38.7-73.9); Platelet Count 249 T/CUMM (130-400); Red Blood Count 3.61 MC/CUMM (3.8-5.5); Red Cell Distribution Width 14.6 % (9.3-17.3); White Blood Count 10.8 T/CUMM (4-12)
[2020-02-22 06:50] LABS: Calcium 8.5 MG/DL (8.5-10.1); Osmolality,Calculated 341.7 MOS/KG (273-304)
[2020-02-22] MEDS: INSULIN REGULAR 100 UNIT/ML SUBCUT SCH ×4 (07:48→22:09)
[2020-02-22] MEDS: ASCORBIC ACID 500 MG TABLET PO SCH ×2 (10:18→21:39)
[2020-02-22] MEDS: ISOSORBIDE DINITRATE 10 MG TABLET PO SCH ×2 (10:18→21:38)
[2020-02-22] MEDS: DOCUSATE SODIUM 100 MG CAPSULE PO SCH (10:18)
[2020-02-22] MEDS: hydrALAZINE 25 MG TABLET PO SCH ×3 (10:18→21:39)
[2020-02-22] MEDS: LEVOTHYROXINE 150 MCG TABLET PO SCH (10:18)
[2020-02-22] MEDS: carvediloL 25 MG TABLET PO SCH ×2 (10:19→16:16)
[2020-02-22] MEDS: ASPIRIN CHEW 81 MG TABLET PO SCH (10:19)
[2020-02-22] MEDS: PANTOPRAZOLE 40 MG VIAL IV SCH (10:19)
[2020-02-22] MEDS: MEXILETINE 150 MG CAPSULE PO SCH ×3 (10:33→21:38)
[2020-02-22] MEDS: AMIODARONE 200 MG TABLET PO SCH ×2 (10:33→21:38)
[2020-02-22] MEDS: SIMVASTATIN 10 MG TABLET PO SCH (21:39)
[2020-02-23] MEDS: DEXTROSE 5% 1,000 ML IV SCH ×4 (05:42→22:00)
[2020-02-23] MEDS: ENOXAPARIN 150 MG/ML SYRINGE SUBCUT SCH (05:42)
[2020-02-23] MEDS: MEXILETINE 150 MG CAPSULE PO SCH ×4 (05:43→21:06)
[2020-02-23 07:03] LABS: Calcium 8.8 MG/DL (8.5-10.1); Osmolality,Calculated 311.3 MOS/KG (273-304)
[2020-02-23] MEDS: INSULIN REGULAR 100 UNIT/ML SUBCUT SCH ×4 (09:08→21:06)
[2020-02-23] MEDS: hydrALAZINE 25 MG TABLET PO SCH ×3 (09:59→20:30)
[2020-02-23] MEDS: AMIODARONE 200 MG TABLET PO SCH ×2 (09:59→20:30)
[2020-02-23] MEDS: ASPIRIN CHEW 81 MG TABLET PO SCH (09:59)
[2020-02-23] MEDS: LEVOTHYROXINE 150 MCG TABLET PO SCH (09:59)
[2020-02-23] MEDS: ISOSORBIDE DINITRATE 10 MG TABLET PO SCH ×2 (09:59→20:30)
[2020-02-23] MEDS: ASCORBIC ACID 500 MG TABLET PO SCH ×2 (09:59→20:30)
[2020-02-23] MEDS: DOCUSATE SODIUM 100 MG CAPSULE PO SCH (10:00)
[2020-02-23] MEDS: POTASSIUM CHLORIDE 20 MEQ TABLET PO PRN (10:00)
[2020-02-23] MEDS: carvediloL 25 MG TABLET PO SCH ×2 (10:00→16:25)
[2020-02-23] MEDS: PANTOPRAZOLE 40 MG VIAL IV SCH (10:01)
[2020-02-23] MEDS: VANCOMYCIN INJ 2,000 MG in SODIUM CHLORIDE 0.9% 500 ML IV SCH (10:44)
[2020-02-23] MEDS: SIMVASTATIN 10 MG TABLET PO SCH (20:30)
[2020-02-24] MEDS: DEXTROSE 5% 1,000 ML IV SCH ×2 (03:05→09:35)
[2020-02-24] MEDS: MEXILETINE 150 MG CAPSULE PO SCH ×3 (05:46→21:18)
[2020-02-24] MEDS: ENOXAPARIN 150 MG/ML SYRINGE SUBCUT SCH (05:46)
[2020-02-24 06:17] LABS: Calcium 8.3 MG/DL (8.5-10.1); Osmolality,Calculated 307.3 MOS/KG (273-304)
[2020-02-24 06:34] LABS: Calcium 8.2 MG/DL (8.5-10.1); Osmolality,Calculated 305.4 MOS/KG (273-304)
[2020-02-24] MEDS: hydrALAZINE 25 MG TABLET PO SCH ×3 (09:28→21:18)
[2020-02-24] MEDS: carvediloL 25 MG TABLET PO SCH ×2 (09:29→17:02)
[2020-02-24] MEDS: LEVOTHYROXINE 150 MCG TABLET PO SCH (09:29)
[2020-02-24] MEDS: ASCORBIC ACID 500 MG TABLET PO SCH ×2 (09:29→21:17)
[2020-02-24] MEDS: APIXABAN 2.5 MG TABLET PO SCH ×2 (09:29→21:18)
[2020-02-24] MEDS: POTASSIUM CHLORIDE 20 MEQ TABLET PO PRN (09:30)
[2020-02-24] MEDS: ASPIRIN CHEW 81 MG TABLET PO SCH (09:30)
[2020-02-24] MEDS: INSULIN REGULAR 100 UNIT/ML SUBCUT SCH ×4 (09:30→22:51)
[2020-02-24] MEDS: ISOSORBIDE DINITRATE 10 MG TABLET PO SCH ×2 (09:30→21:17)
[2020-02-24] MEDS: AMIODARONE 200 MG TABLET PO SCH ×2 (09:30→21:18)
[2020-02-24] MEDS: PANTOPRAZOLE 40 MG VIAL IV SCH (09:31)
[2020-02-24] MEDS: DOCUSATE SODIUM 100 MG CAPSULE PO SCH (09:35)
[2020-02-24] MEDS: SIMVASTATIN 10 MG TABLET PO SCH (21:18)
[2020-02-25] MEDS: VANCOMYCIN INJ 2,000 MG in SODIUM CHLORIDE 0.9% 500 ML IV SCH (00:21)
[2020-02-25] MEDS: ACETAMINOPHEN 325 MG TABLET PO PRN ×3 (00:22→22:15)
[2020-02-25] MEDS: MEXILETINE 150 MG CAPSULE PO SCH ×3 (05:35→21:37)
[2020-02-25] MEDS: INSULIN REGULAR 100 UNIT/ML SUBCUT SCH ×4 (07:30→20:49)
[2020-02-25 07:44] LABS: Basophils % 0.3 % (0.0-0.8); Eosinophils # 0.3 10*3/uL (0.0-0.87); Eosinophils % 2.7 % (0.00-10.9); Hematocrit 33.1 VOL% (42.0-52.0); Hemoglobin 9.9 GM/DL (14.0-18.0); Immature Granulocytes % 0.6 %; Immature Granulocytes Absolute 0.06 #; Lymphocytes # 1.8 10*3/uL (1.4-4.0); Mean Corpuscular HGB Conc 29.9 GM/DL (32-36); Mean Corpuscular Volume 100.6 FL (87-102); Mean Platelet Volume 12.4 FL (9.6-12.0); Monocytes % 5.4 % (1.7-12.7); Platelet Count 267 T/CUMM (130-400); Red Blood Count 3.29 MC/CUMM (3.8-5.5); Red Cell Distribution Width 13.3 % (9.3-17.3); White Blood Count 10.6 T/CUMM (4-12)
[2020-02-25 08:06] LABS: Calcium 8.5 MG/DL (8.5-10.1); Osmolality,Calculated 297.7 MOS/KG (273-304)
[2020-02-25] MEDS: DEXTROSE 5% 1,000 ML IV SCH ×3 (08:55→20:50)
[2020-02-25] MEDS: ISOSORBIDE DINITRATE 10 MG TABLET PO SCH ×2 (09:00→20:50)
[2020-02-25] MEDS: carvediloL 25 MG TABLET PO SCH ×2 (09:00→17:10)
[2020-02-25] MEDS: ASCORBIC ACID 500 MG TABLET PO SCH ×2 (09:00→20:50)
[2020-02-25] MEDS: LEVOTHYROXINE 150 MCG TABLET PO SCH (09:00)
[2020-02-25] MEDS: hydrALAZINE 25 MG TABLET PO SCH ×3 (09:00→20:49)
[2020-02-25] MEDS: PANTOPRAZOLE 40 MG VIAL IV SCH (09:01)
[2020-02-25] MEDS: DOCUSATE SODIUM 100 MG CAPSULE PO SCH (09:01)
[2020-02-25] MEDS: APIXABAN 5 MG TABLET PO SCH ×2 (09:01→20:49)
[2020-02-25] MEDS: AMIODARONE 200 MG TABLET PO SCH ×2 (09:01→20:49)
[2020-02-25] MEDS: ASPIRIN CHEW 81 MG TABLET PO SCH (09:01)
[2020-02-25] MEDS: SIMVASTATIN 10 MG TABLET PO SCH (20:50)
[2020-02-26] MEDS: DEXTROSE 5% 1,000 ML IV SCH (02:37)
[2020-02-26] MEDS: MEXILETINE 150 MG CAPSULE PO SCH ×2 (05:59→15:06)
[2020-02-26 06:33] LABS: Basophils % 0.3 % (0.0-0.8); Eosinophils # 0.3 10*3/uL (0.0-0.87); Eosinophils % 3.3 % (0.00-10.9); Hematocrit 31.7 VOL% (42.0-52.0); Hemoglobin 9.8 GM/DL (14.0-18.0); Immature Granulocytes % 0.5 %; Immature Granulocytes Absolute 0.05 #; Lymphocytes # 1.7 10*3/uL (1.4-4.0); Lymphocytes % 16.9 % (21.2-54.2); Mean Corpuscular HGB Conc 30.9 GM/DL (32-36); Mean Corpuscular Volume 97.2 FL (87-102); Mean Platelet Volume 12.3 FL (9.6-12.0); Monocytes % 6.8 % (1.7-12.7); Neutrophils % 72.2 % (38.7-73.9); Platelet Count 288 T/CUMM (130-400); Red Blood Count 3.26 MC/CUMM (3.8-5.5); Red Cell Distribution Width 13.3 % (9.3-17.3); White Blood Count 9.8 T/CUMM (4-12)
[2020-02-26 06:53] LABS: Calcium 8.8 MG/DL (8.5-10.1); Osmolality,Calculated 290.3 MOS/KG (273-304)
[2020-02-26 07:58] VITALS: BP 120/67
[2020-02-26] MEDS: INSULIN REGULAR 100 UNIT/ML SUBCUT SCH ×2 (08:25→14:14)
[2020-02-26] MEDS: LEVOTHYROXINE 150 MCG TABLET PO SCH (08:48)
[2020-02-26] MEDS: ISOSORBIDE DINITRATE 10 MG TABLET PO SCH (08:48)
[2020-02-26] MEDS: carvediloL 25 MG TABLET PO SCH (08:48)
[2020-02-26] MEDS: ASCORBIC ACID 500 MG TABLET PO SCH (08:48)
[2020-02-26] MEDS: AMIODARONE 200 MG TABLET PO SCH (08:48)
[2020-02-26] MEDS: hydrALAZINE 25 MG TABLET PO SCH (08:48)
[2020-02-26] MEDS: POTASSIUM CHLORIDE 20 MEQ TABLET PO PRN (08:49)
[2020-02-26] MEDS: DOCUSATE SODIUM 100 MG CAPSULE PO SCH (08:49)
[2020-02-26] MEDS: PANTOPRAZOLE 40 MG VIAL IV SCH (08:49)
[2020-02-26] MEDS: ASPIRIN CHEW 81 MG TABLET PO SCH (08:49)
[2020-02-26] MEDS: APIXABAN 5 MG TABLET PO SCH (08:49)
[2020-02-26] MEDS ORDERED: SACUBITRIL/VALSARTAN 49-51 MG TABLET PO SCH (09:00)
[2020-02-26] MEDS ORDERED: AMIODARONE 200 MG TABLET PO SCH (09:29)
[2020-02-26] MEDS: VANCOMYCIN INJ 2,000 MG in SODIUM CHLORIDE 0.9% 500 ML IV SCH (11:20)
== END 2020-02-26 14:48 | disposition home health service (06) | DRG 273 ==
LOC: N.ICU 12:23 → SUPCPDRO 12:23 → N.TELES 02-20 13:52
PROVIDERS: ADMIT Internal Medicine Clinical Cardiac Electrophysiology; ATTEND Internal Medicine Clinical Cardiac Electrophysiology
PROC: CLEPAVT (ICD-10-PCS; 2020-02-17 07:45)